=== PATIENT | female | born 1995 | race Caucasian/White ===

== ENCOUNTER 2018-09-27 20:47 | Emergency (ER) | payer OTHER ==
[~2018-09-27] VITALS: Ht 154.9 cm; Wt 47.6 kg
[2018-09-27] MEDS ORDERED: LEVOXYL50 MCG PO (21:54)
== END 2018-09-28 00:20 | disposition home or self-care (01) ==
LOC: ER 20:47
DX: O26.891 Other specified pregnancy related conditions, first trimester (principal); S30.1XXA Contusion of abdominal wall, initial encounter; V49.9XXA Car occupant (driver) (passenger) injured in unspecified traffic accident, initial encounter; Y93.89 Activity, other specified; Y92.488 Other paved roadways as the place of occurrence of the external cause; Y99.8 Other external cause status; Z34.01 Encounter for supervision of normal first pregnancy, first trimester

== ENCOUNTER 2019-01-11 14:10 | Inpatient (IN) | payer OTHER ==
[~2019-01-11] VITALS: Ht 152.4 cm; Wt 51.7 kg
[~2019-01-11 14:10] MED LIST: LEVOXYL50 MCG PO
[2019-01-11] MEDS ORDERED: PRENATAL CAPLE1 EAC1 PO (14:57)
[2019-01-11] MEDS ORDERED: SYNTHROID75 MCG PO (14:57)
[2019-01-11] MEDS ORDERED: FOLIC ACID1 MG PO (14:58)
== END 2019-01-13 12:10 | disposition home or self-care (01) | DRG 833 ==
LOC: OBS/DEL 14:10 → LDR 01-12 15:20
PROVIDERS: ADMIT Obstetrics & Gynecology Obstetrics
PROC: 4A1HXCZ Monitoring of Products of Conception, Cardiac Rate, External Approach (ICD-10-PCS; principal; 2019-01-12)
DX: O23.32 Infections of other parts of urinary tract in pregnancy, second trimester (principal); R10.2 Pelvic and perineal pain; Z34.02 Encounter for supervision of normal first pregnancy, second trimester

== ENCOUNTER 2019-01-24 19:45 | Inpatient (IN) | payer OTHER ==
[~2019-01-24] VITALS: Ht 152.4 cm; Wt 54.4 kg
[~2019-01-24 19:45] MED LIST changes: +FOLIC ACID1 MG PO; +PRENATAL CAPLE1 EAC1 PO; +SYNTHROID75 MCG PO
== END 2019-01-26 19:13 | disposition home or self-care (01) | DRG 831 ==
LOC: OBS/DEL 19:45 → LDR 01-25 12:24
PROVIDERS: ADMIT Obstetrics & Gynecology Obstetrics
PROC: 4A1HXCZ Monitoring of Products of Conception, Cardiac Rate, External Approach (ICD-10-PCS; principal; 2019-01-25)
DX: O36.5920 Maternal care for other known or suspected poor fetal growth, second trimester, not applicable or unspecified (principal); J80 Acute respiratory distress syndrome; Z34.02 Encounter for supervision of normal first pregnancy, second trimester

== ENCOUNTER 2019-03-25 08:25 | Outpatient (CLI) | payer OTHER | END 2019-03-25 09:40 | disposition home or self-care (01) | LOC: PRENATAL 08:25 | DX: O99.89 Other specified diseases and conditions complicating pregnancy, childbirth and the puerperium (principal); O09.92 Supervision of high risk pregnancy, unspecified, second trimester ==

== ENCOUNTER 2019-05-06 09:13 | Outpatient (CLI) | payer OTHER | END 2019-05-06 10:00 | disposition home or self-care (01) | LOC: PRENATAL 09:13 | DX: O99.89 Other specified diseases and conditions complicating pregnancy, childbirth and the puerperium (principal); O26.843 Uterine size-date discrepancy, third trimester ==

== ENCOUNTER 2019-05-27 08:09 | Inpatient (IN) | payer OTHER ==
[~2019-05-27] VITALS: Ht 154.9 cm; Wt 65.8 kg
== END 2019-05-30 14:33 | disposition home or self-care (01) | DRG 807 ==
LOC: LDR 08:09 → OB/GYN 08:09 → LDR 21:20 → OB/GYN 05-28 05:28
PROVIDERS: ADMIT Obstetrics & Gynecology Obstetrics
PROC: 10E0XZZ Delivery of Products of Conception, External Approach (ICD-10-PCS; principal; 2019-05-27)
PROC: 4A1HXCZ Monitoring of Products of Conception, Cardiac Rate, External Approach (ICD-10-PCS; 2019-05-27)
DX: O80 Encounter for full-term uncomplicated delivery (principal); Z37.0 Single live birth; Z3A.40 40 weeks gestation of pregnancy

== ENCOUNTER 2019-10-22 20:59 | Emergency (ER) | payer OTHER ==
[~2019-10-22] VITALS: Ht 154.9 cm; Wt 53.5 kg
[2019-10-23] MEDS ORDERED: ZITHROMAX500 MG PO (01:15)
== END 2019-10-23 01:20 | disposition home or self-care (01) ==
LOC: ER 20:59
DX: B33.8 Other specified viral diseases (principal); B96.0 Mycoplasma pneumoniae [M. pneumoniae] as the cause of diseases classified elsewhere

== ENCOUNTER 2020-04-14 00:01 | Emergency (ER) | payer OTHER ==
[~2020-04-14] VITALS: Ht 152.4 cm; Wt 55.8 kg
[~2020-04-14 00:01] MED LIST changes: +ZITHROMAX500 MG PO
[2020-04-14] MEDS ORDERED: ZOFRAN4 MG PO (06:10)
[2020-04-14] MEDS ORDERED: PEPCID40 MG PO (06:10)
[2020-04-14] MEDS ORDERED: INTESTINEX680 M1 PO (06:10)
== END 2020-04-14 06:42 ==
LOC: ER 00:01
DX: K52.89 Other specified noninfective gastroenteritis and colitis (principal); Z20.828 Contact with and (suspected) exposure to other viral communicable diseases

== ENCOUNTER → 2020-10-05 | Outpatient (CLI) | payer OTHER ==
[~2020-10-05] MED LIST changes: +INTESTINEX680 M1 PO; +PEPCID40 MG PO; +ZOFRAN4 MG PO
== END | disposition home or self-care (01) ==
LOC: PRENATAL 10:23
PROVIDERS: ATTEND Obstetrics & Gynecology Maternal & Fetal Medicine
DX: O35.0XX1 Maternal care for (suspected) central nervous system malformation in fetus, fetus 1 (principal); O35.3XX1 Maternal care for (suspected) damage to fetus from viral disease in mother, fetus 1; O98.513 Other viral diseases complicating pregnancy, third trimester; O36.8131 Decreased fetal movements, third trimester, fetus 1; Z36.89 Encounter for other specified antenatal screening; Z3A.31 31 weeks gestation of pregnancy

== ENCOUNTER 2020-11-10 16:58 | Outpatient (CLI) | payer OTHER | END 2020-11-11 17:46 | disposition home or self-care (01) | LOC: OBS/DEL 16:58 | PROVIDERS: ATTEND Obstetrics & Gynecology Obstetrics | DX: O26.893 Other specified pregnancy related conditions, third trimester (principal); R10.2 Pelvic and perineal pain; Z3A.37 37 weeks gestation of pregnancy ==

== ENCOUNTER 2020-11-23 10:22 | Inpatient (IN) | payer OTHER ==
[~2020-11-23] VITALS: Ht 154.9 cm; Wt 58.1 kg
[2020-11-23] MEDS ORDERED: PRENATAL CAPLE1 EAC1 PO (10:43)
[2020-11-23] MEDS ORDERED: FOLIC ACID0.8 M1 PO (10:43)
[2020-11-23] MEDS ORDERED: SYNTHROID88 MCG PO (10:43)
== END 2020-11-25 18:56 | disposition home or self-care (01) | DRG 807 ==
LOC: OB/GYN 10:22 → LDR 10:22 → OB/GYN 18:24
PROVIDERS: ADMIT Obstetrics & Gynecology Obstetrics; ATTEND Obstetrics & Gynecology Obstetrics
PROC: 10E0XZZ Delivery of Products of Conception, External Approach (ICD-10-PCS; principal; 2020-11-23)
PROC: 10907ZC Drainage of Amniotic Fluid, Therapeutic from Products of Conception, Via Natural or Artificial Opening (ICD-10-PCS; 2020-11-23)
PROC: 3E0P7VZ Introduction of Hormone into Female Reproductive, Via Natural or Artificial Opening (ICD-10-PCS; 2020-11-23)
PROC: 4A1HXFZ Monitoring of Products of Conception, Cardiac Rhythm, External Approach (ICD-10-PCS; 2020-11-23)
DX: O80 Encounter for full-term uncomplicated delivery (principal); Z37.0 Single live birth; Z3A.39 39 weeks gestation of pregnancy; Z20.822 Contact with and (suspected) exposure to COVID-19

== ENCOUNTER 2021-08-24 11:41 | Emergency (ER) | payer OTHER ==
[~2021-08-24] VITALS: Ht 157.5 cm; Wt 49.4 kg
[~2021-08-24 11:41] MED LIST changes: +FOLIC ACID0.8 M1 PO; +SYNTHROID88 MCG PO
== END 2021-08-24 13:25 | disposition home or self-care (01) ==
LOC: ER 11:41
DX: U07.1 COVID-19 (principal); E03.9 Hypothyroidism, unspecified

== ENCOUNTER 2023-06-13 11:58 | Emergency (ER) | payer OTHER ==
[~2023-06-13] VITALS: Ht 152.4 cm; Wt 50.8 kg
== END 2023-06-13 14:56 | disposition home or self-care (01) ==
LOC: ER 11:58
DX: J06.9 Acute upper respiratory infection, unspecified (principal)